=== PATIENT | male | born 1965 | race Caucasian/White ===

== ENCOUNTER → 2016-09-23 | Day surgery (SDC) | payer BC ==
[2016-09-11 08:26] VITALS: Ht 185.4 cm; Wt 112.3 kg
[~2016-09-23] VITALS: Ht 185.4 cm; Wt 112.3 kg
[~2016-09-23] MED LIST: ALBU18002 INH; LABETALOL HCL IV 5 MG/ML 20ML ONE; LIDOCAINE HCL 2% 2 ML VIAL (20MG/ML) ONE; MIDAZOLAM HCL 1 MG/ML 2ML VIAL ONE; NAPR500T3 PO; ONDANSETRON INJ 2 MG/ML 2 ML VIAL ONE; PROPOFOL IV EMULSION 10 MG/ML 20 ML VIAL IV ONE; SODIUM CHLORIDE 0.9% 500ML 500 ML IV ONE
--- NOTE | 2016-09-23 09:57 | Endo History and Physical ---
History & Physical Date of Service: Sep 23, 2016. Chief Complaint: screening Referring Physician: Dr. Josie Kraus History of Present Illness 51 yo CM who presents for screening colonoscopy. Past Surgical History Hx Cardiac Surgery: No Hx Internal Defibrillator: No Hx Pacemaker: No Hx Abdominal Surgery: No Hx of Implantable Prosthesis: No Hx Post-Op Nausea and Vomiting: No Hx Cancer Surgery: No Hx Thoracic Surgery: No Hx Orthopedic: No Hx Urinary Tract Surgery: No Family History Esophogeal CA Social History Smoking Status: Never Smoker Hx Substance Use: No Hx Alcohol Use: Yes (RARELY) Allergies Coded Allergies: Aspirin (Verified Allergy, Unknown, ASTHMA ATTACK, 09/11/16) Penicillins (Verified Allergy, Unknown, ? REMEMBER / A CHILD, 09/11/16) Current Medications Reported Home Medications Medications Dose Route/Sig Max Daily Dose Days Date Category Proair Respiclick (Albuterol Sulfate) 108 Mcg/Act Aer 2 Puffs INH QID PRN 09/11/16 Reported Naproxen 500 Mg Tab 1 Tab PO BID PRN 30 09/11/16 Reported Vital Signs Weight (Kilograms): 112.27 Height (Feet): 6 Height (Inches): 1 Date Time Temp Pulse Resp B/P Pulse Ox O2 Delivery O2 Flow Rate FiO2 09/23/16 09:23 36.7 76 20 145/89 97 Room Air Physical Exam General Appearance: WD/WN, no apparent distress Respiratory/Chest: Auscultation: breath sounds normal Cardiovascular: Heart Auscultation: RRR Abdomen: Bowel Sounds: normal Inspection & Palpation: soft, non-distended, no tenderness, guarding & rebound Assessment and Plan Assessment: 51 yo CM who presents for screening colonoscopy. Plan: Proceed with colonoscopy.
--- NOTE | 2016-09-23 10:29 | Discharge Instructions ---
Endoscopy Patient Instructions Date / Procedure(s) Performed Sep 23, 2016. Colonoscopy Allergy Information Coded Allergies: Aspirin (Verified Allergy, Unknown, ASTHMA ATTACK, 09/11/16) Penicillins (Verified Allergy, Unknown, ? REMEMBER / A CHILD, 09/11/16) Discharge Date / Findings Sep 23, 2016. Colon polyps Diverticulosis Internal hemorrhoids Medication Instructions OK to resume all medications today as prescribed. Reported Home Medications Medications Dose Route/Sig Max Daily Dose Days Date Category Proair Respiclick (Albuterol Sulfate) 108 Mcg/Act Aer 2 Puffs INH QID PRN 09/11/16 Reported Naproxen 500 Mg Tab 1 Tab PO BID PRN 30 09/11/16 Reported Provider Instructions Activity Restrictions - No exercising or heavy lifting for 24 hours. - Do not drink alcohol the day of the procedure. - Do not drive a car or operate machinery until the day after the procedure. - Do not make any important decisions or sign important papers in 24 hours after the procedure. Following Day: - Return to full activity which may include returning to work/school. Diet Start your diet with liquids and light foods (jello, soup, juice, toast). Then eat your usual diet if not nauseated. Treatment For Common After Affects For mild abdominal pain, bloating, or excessive gas: - Rest - Eat lightly - Lie on right side Follow-Up Information Follow-up with Dr. Josie Kraus as scheduled Anesthesia Information What You Should Know You have had a procedure that required some medicine to reduce anxiety and discomfort. This treatment is called moderate sedation. After receiving the treatment, you may be sleepy, but you will be able to breathe on your own. The effects of the treatment may last for several hours. Follow these instructions along with Activity/Diet recommendations noted above: * Do NOT do anything where dizziness or clumsiness would be dangerous. * Rest quietly at home today, then you can be up and about tomorrow. * Have a responsible person stay with you the rest of today. * You may have had an I.V. today. If so, you may take the dressing off later today. Recommendations Call your doctor if: * Trouble breathing * Continuous vomiting for more than 24 hours * Temperature above 101 degrees * Severe abdominal pain or bloating * Pain not relieved by pain medicine ordered * There is increased drainage or redness from any incision * A large amount of rectal bleeding greater than 2-3 tablespoons. (If you had a polyp/s removed or have hemorrhoids, a small amount of blood - from the rectum is to be expected.) * You have any unanswered questions or concerns. IN THE EVENT OF A SERIOUS EMERGENCY, GO TO THE NEAREST EMERGENCY ROOM Your discharge instructions were prepared by provider Khurram Garza. Patient Instructions Signature Page Hugo Carmelo Patient (or Guardian) Signature/Date: I have read and understand the instructions given to me by my caregivers. Caregiver/RN/Doctor Signature/Date: The above-named patient and/or guardian has received patient instructions on this date. + Original Patient Signature Page (only) stays with chart. Please make copy for patient.
--- NOTE | 2016-09-23 10:33 | GI REPORT ---
Procedure Date: 09/23/2016 9:46 AM Procedure: Colonoscopy Indications: Screening for colorectal malignant neoplasm Medicines: Monitored Anesthesia Care Complications: No immediate complications. Estimated Blood Loss: Estimated blood loss: none. Procedure: Pre-Anesthesia Assessment: - Prior to the procedure, a History and Physical was performed, and patient medications and allergies were reviewed. The patient's tolerance of previous anesthesia was also reviewed. The risks and benefits of the procedure and the sedation options and risks were discussed with the patient. All questions were answered, and informed consent was obtained. Prior Anticoagulants: The patient has taken no previous anticoagulant or antiplatelet agents. ASA Grade Assessment: II - A patient with mild systemic disease. After reviewing the risks and benefits, the patient was deemed in satisfactory condition to undergo the procedure. After I obtained informed consent, the scope was passed under direct vision. Throughout the procedure, the patient's blood pressure, pulse, and oxygen saturations were monitored continuously. The scope was introduced through the anus and advanced to the terminal ileum. The colonoscopy was performed without difficulty. The patient tolerated the procedure well. The quality of the bowel preparation was good. The terminal ileum, ileocecal valve, appendiceal orifice, and rectum were photographed. Findings: Two sessile polyps were found at the hepatic flexure. The polyps were 5 to 10 mm in size. These polyps were removed with a hot snare. Resection and retrieval were complete. Multiple small-mouthed diverticula were found in the sigmoid colon. Non-bleeding internal hemorrhoids were found during retroflexion. The hemorrhoids were small. Impression: - Two 5 to 10 mm polyps at the hepatic flexure, removed with a hot snare. Resected and retrieved. - Diverticulosis in the sigmoid colon. - Non-bleeding internal hemorrhoids. Recommendation: - Resume previous diet. - Continue present medications. - Repeat colonoscopy for surveillance based on pathology results. - Return to primary care physician as previously scheduled. Khurram Garza, DO 09/23/2016 10:32:30 AM This report has been signed electronically. Note Initiated On: 09/23/2016 9:46 AM I attest to the content of the Intraoperative Record and orders documented therein, exceptions below
--- NOTE | 2016-09-23 10:57 | Anesthesiology Progress Note ---
Anesthesia Post Op Note Date & Time Sep 23, 2016 at 10:57 Vital Signs Pain Intensity: 0 Vital Signs Past 12 Hours Date Time Temp Pulse Resp B/P Pulse Ox O2 Delivery O2 Flow Rate FiO2 09/23/16 10:52 75 20 146/86 98 Room Air 09/23/16 10:37 80 16 146/75 98 Room Air 09/23/16 09:23 36.7 76 20 145/89 97 Room Air Notes Mental Status: alert / awake / arousable, participated in evaluation Pt Amnestic to Procedure: Yes Nausea / Vomiting: adequately controlled Pain: adequately controlled Airway Patency, RR, SpO2: stable & adequate BP & HR: stable & adequate Hydration State: stable & adequate Anesthetic Complications: no major complications apparent
[2016-09-23 11:07] VITALS: BP 140/84; PULSE 68; O2SAT 96
== END | disposition home or self-care (01) ==
LOC: C.GI 09:08
PROVIDERS: ATTEND Internal Medicine
DX: Z12.11 Encounter for screening for malignant neoplasm of colon (principal); D12.3 Benign neoplasm of transverse colon; K57.30 Diverticulosis of large intestine without perforation or abscess without bleeding; K64.8 Other hemorrhoids; Z80.0 Family history of malignant neoplasm of digestive organs; Z88.0 Allergy status to penicillin; Z88.8 Allergy status to other drugs, medicaments and biological substances

== ENCOUNTER → 2016-11-30 | Outpatient (CLI) | payer BC ==
[~2016-11-30] MED LIST changes: -LABETALOL HCL IV 5 MG/ML 20ML ONE; -LIDOCAINE HCL 2% 2 ML VIAL (20MG/ML) ONE; -MIDAZOLAM HCL 1 MG/ML 2ML VIAL ONE; -ONDANSETRON INJ 2 MG/ML 2 ML VIAL ONE; -PROPOFOL IV EMULSION 10 MG/ML 20 ML VIAL IV ONE; -SODIUM CHLORIDE 0.9% 500ML 500 ML IV ONE
--- NOTE | 2016-12-01 05:53 | SPLIT NIGHT TECHNICIAN REPORT ---
[facility] Split Night Polysomnogram - Aircraft Maintenance Supervisor Report Study date: 11/30/2016 Referring Physician: DR. MARIN Name: JOHNNY RHODES Aircraft Maintenance Supervisor: JEEVAN Rodriguez. Date of : 1965 Height: 51 years, Height 6' 1" Sex: Male Weight: 251 lbs Age: 51 Neck Circum: 18.5 in BMI: Medications: 33.11 LORATADINE 10 MG, ALBUTEROL SULFATE Patient History 51 yr-old male here for a baseline/split study. He has a history of snoring, witnessed apneas, and dog hair allergies. He has had previous sleep testing and was found to be positive for TRSESA but did not use CPAP at that time. His Leslie scale is 2. The test was started on room air. ETCO2 testing was not utilized during this study. Room 1 Parameters Monitored NPSG: E1-M2, E2-M1, Fp1-M2, Fp2-M1, F3-M2, F4-M2, F4-M1, C3-M2, C4-M2, C4-M1, O1-M2, O2-M2, O2-M1, T3-M2, T4-M1, P3-M2, P4-M1, CHIN1, CHIN2, HR, EKG, Legs, PFLOW, SNOR, FLOW, CFLOW, Tidal Volume, THOR, ABDO, SpO2, PLTH, CPRESS, ETCO2 Wave, ETCO2, pH SLEEP SUMMARY DATA DIAGNOSTIC TREATMENT Lights Out: 9:27:41 PM 12:12:11 AM Lights On: 12:01:41 AM 5:29:41 AM Total Recording Time (TRT): 154.0 min. 317.5 min. Total Sleep Time (TST): 127.5 min. 294.5 min. NREM Time: 116.0 min. 235.5 min. REM Time: 11.5 min. 59.0 min. Sleep Period Time (SPT): 131.5 min. 308.0 min. Sleep Efficiency (SE): 83 % 93 % Sleep Latency: 22.5 min. 9.5 min. Arousal Index: 38.1 21.0 PAP Treatment Levels: 4, 6, 8, 10, 11, 12 * Optimal Pressure(s) SLEEP STAGING DATA DIAGNOSTIC TREATMENT Duration (min) TST % Duration (min) TST % Stage Wake: 26.5 min. -- 23.0 min. -- WASO: 4.0 min. -- 13.5 min. -- NREM: 116.0 min. 91 % 235.5 min. 80 % Stage N1: 16.0 min. 13 % 31.0 min. 11 % Stage N2: 100.0 min. 78 % 158.0 min. 54 % Stage N3: 0.0 min. 0 % 46.5 min. 16 % REM: 11.5 min. 9 % 59.0 min. 20 % POSITIONAL DATA Event Count Index Event Count Index Supine: N/A N/A N/A N/A Supine NREM: N/A N/A N/A N/A Supine REM: N/A N/A N/A N/A Non-Supine: 169 79.5 111 22.0 Non-Supine NREM: 158 81.7 107 26.8 Non-Supine REM: 11 57.4 4 3.1 AROUSAL SUMMARY DATA: Event Count Index Event Count Index Apnea Arousals: 45 52.2 44 17.9 Hypopnea Arousals: 22 10.4 9 1.8 Snore Arousals: 3 1.4 16 3.3 PLM Arousals: 0 0.0 0 0.0 Non-Specific Arousals: 13 6.1 32 6.5 Total Arousals: 81 38.1 103 21.0 MYOCLONUS (PLM) Event Count Index Event Count Index PLM: 1 0.5 73 14.9 PLM AROUSAL: 0 0.0 0 0.0 PLM W/O AROUSAL 1 0.5 73 14.9 PLM W/RESP EVENT 0 0.0 2 0.0 MYOCLONUS (PLM) Event Count Index Event Count Index LM: 1 8.5 30 6.1 LM AROUSAL: 1 0.5 1 0.2 LM W/O AROUSAL LM W/RESP EVENT LM NON SPECIFIC 8 3.8 98 20.0 HEART RATE DATA DIAGNOSTIC TREATMENT Sleep (bpm): 68 67 REM (bpm): 80 94 NREM (bpm): 88 94 Tachycardia Count: 0 0 Tachycardia Duration: 0.00 0 Bradycardia Count: 0 0 Bradycardia Duration: 0.00 0 DIAGNOSTIC PORTION TREATMENT PORTION RESPIRATORY DATA Event Count Index Event Count Index AHI: -- 79.5 -- 22.0 RDI: -- 79.5 -- 23 Obstructive Apnea: 110 51.8 80 16.3 Central Apnea: 0 0.0 8 1.6 Mixed Apnea: 1 0.5 0 0.0 Hypopnea: 58 27.3 20 4.1 RERA: 0 0.0 3 0.6 Total Apneas: 111 52.2 88 17.9 RESPIRATORY DATA REM NREM SLEEP REM NREM SLEEP Supine Position: Obstructive Apneas: N/A N/A N/A N/A N/A N/A Central Apneas: N/A N/A N/A N/A N/A N/A Mixed Apneas: N/A N/A N/A N/A N/A N/A Hypopneas: N/A N/A N/A N/A N/A N/A RERA N/A N/A N/A N/A N/A N/A Total Supine Events: N/A N/A N/A N/A N/A N/A Supine AHI: N/A N/A N/A N/A N/A N/A Supine RDI: N/A N/A N/A N/A N/A N/A REM NREM SLEEP REM NREM SLEEP Non-Supine Position: Obstructive Apneas: 3 107 110 1 79 80 Central Apneas: 0 0 0 2 6 8 Mixed Apneas: 1 0 1 0 0 0 Hypopneas: 7 51 58 0 20 20 RERA 0 0 0 1 2 3 Total Supine Events: 11 158 169 4 107 111 Supine AHI: 57.4 81.7 79.5 3.1 26.8 22.0 Supine RDI: 57.4 81.7 79.5 4.1 27.3 22.6 OXYGEN DESTAURATION DATA: Event Count Index Event Count Index REM Desaturations: 12 62.6 3 3.1 NREM Desaturations: 140 72.4 76 19.4 SNORE DATA DIAGNOSTIC TREATMENT Snore Time: 15.0 12:21:41 AM Snore TST%: 4 5 Snore Arousal Count: 3 16 Snore Arousal Index: 1.4 3.3 Desaturation Event Summary: Minimum %SpO2 Event Count Mean/Min/Max Duration(sec.) Desaturation Index % Time In Bed > 90 231 27.3 / 9.3 / 60.0 35.6 82.8 86 - 90 6 26.0 / 13.3 / 46.8 9.8 7.8 81 - 85 0 N/A 0.0 4.5 76 - 80 0 N/A 0.0 2.2 71 - 75 0 N/A 0.0 1.3 66 - 70 0 N/A 0.0 1.1 61 - 65 0 N/A 0.0 0.3 56 - 60 0 N/A 0.0 0.0 51 - 55 0 N/A 0.0 0.0 < 50 0 N/A 0.0 0.0 OXYGEN SATURATION DATA DIAGNOSTIC TREATMENT SpO2 Mean Sleep: 88 % 94 % SpO2 Mean REM: 80 % 94 % SpO2 Mean NREM: 88 % 94 % SpO2 Minimum Sleep: 63 % 82 % SpO2 Minimum REM: 63 % 86 % SpO2 Minimum NREM: 64 % 82 % Time Below 90% (TST): 60.3 8.2 Time Below 88% (TST): 50.5 3.7 Total REM NREM Awake <50% 0.0 min. 0.0 min. 0.0 min. 0.0 min. 51 - 60% 0.0 min. 0.0 min. 0.0 min. 0.0 min. 61 - 70% 6.6 min. 2.6 min. 2.9 min. 1.1 min. 71 - 80% 16.6 min. 3.2 min. 13.1 min. 0.3 min. 81 - 90% 57.8 min. 3.3 min. 54.2 min. 0.3 min. 91 - 100% 389.1 min. 61.4 min. 281.0 min. 46.7 min. Average 92 92 92 93 Minimum SpO2 63 63 64 63 Desaturation Event Index 29.5 12.8 36.9 1.2 # Desat. Events below 89% 152 13 139 0 Time(%) with Saturation below 89% 13.2 1.7 11.2 0.3 Time(min.) with Saturation below 89% 62.2 8.2 52.4 1.6 Recording Aircraft Maintenance Supervisor Comments: Mr. Rhodes slept only in the supine position. No cardiac arrhythmias were noted. Some PLMs were noted. No bruxism noted. Snoring was noted and scored as a 2-3 on a scale of 1 through 5. (0=no snoring, 5=snoring loud enough to be heard through a closed door or down the [place]ataya way) At 12:11 am, he met specific Split-Night criteria during the diagnostic portion of this study. CPAP was initiated at +4 CMH2O and up-titrated to a level of +12 CMH2O, Cflex 3. A Mirage FX Soft edge nasal mask size standard from [employer] was used during titration He awoke to use the restroom one time during the night. Mr. Rhodes stated that he is unsure of how he slept. The final report will be interpreted and signed by a sleep physician. The completed physician report will then be placed in the patient medical record. Therapy Event: Therapy (cm H20) 0 4 6 8 10 11 12 Total Time at Pressure (min.) 154.0 26.3 14.6 50.8 89.0 106.1 30.8 TST at Pressure (min.) 127.5 14.8 14.6 48.8 89.0 101.6 25.8 # Periods 1 1 1 1 1 1 1 Sleep Onset (min.) 22.5 9.5 0.0 0.0 0.0 0.0 0.0 REM Onset (min.) 106.5 N/A N/A 23.1 70.8 52.8 0.0 Sleep Efficiency % 82 56 100 96 100 95 83 Wakefulness (%) 17.2 43.7 0.0 3.9 0.0 4.2 16.3 Wakefulness (min.) 26.5 11.5 0.0 2.0 0.0 4.5 5.0 NREM 1 (%) 10.4 17.1 17.2 7.2 6.6 6.1 26.0 NREM 1 (min.) 16.0 4.5 2.5 3.7 5.8 6.5 8.0 NREM 2 (%) 64.9 39.2 82.8 34.7 36.7 65.8 50.4 NREM 2 (min.) 100.0 10.3 12.1 17.6 32.7 69.8 15.5 NREM 3 (%) 0.0 0.0 0.0 6.9 43.3 4.2 0.0 NREM 3 (min.) 0.0 0.0 0.0 3.5 38.5 4.5 0.0 REM (%) 7.5 0.0 0.0 47.3 13.5 19.6 7.3 REM (min.) 11.5 0.0 0.0 24.0 12.0 20.7 2.3 # Arousals 81 17 14 21 13 28 10 Arousal Index 38.1 68.9 57.7 25.8 8.8 16.5 23.3 # Snore 307 37 45 69 73 172 73 Snore Index 144.5 149.9 185.5 84.9 49.2 101.6 170.1 AHI 79.5 109.4 111.3 28.3 6.1 12.4 2.3 AHI Supine N/A N/A N/A N/A N/A N/A N/A AHI Non-Supine 79.5 109.4 111.3 28.3 6.1 12.4 2.3 NREM AHI 81.7 109.4 111.3 53.3 7.0 14.1 2.6 REM AHI 57.4 N/A N/A 2.5 0.0 5.8 0.0 RDI 79.5 109.4 111.3 28.3 6.1 14.2 2.3 # Obstructive 110 27 26 14 5 7 1 # Central Ap 0 0 0 1 2 5 0 # Mixed 1 0 0 0 0 0 0 # Hypopneas 58 0 1 8 2 9 0 RERAS 0 0 0 0 0 3 0 Total Respiratory Events 169 27 27 23 9 24 1 Time Below SpO2 89.00% (min.) 55.2 0.1 1.8 2.8 0.4 0.5 0.0 Mean NREM SpO2 (%) 88 93 93 93 94 94 94 Mean REM SpO2 (%) 80 N/A N/A 93 95 94 94 Mean Sleep SpO2 (%) 88 93 93 93 94 94 94 Min NREM SpO2 (%) 64 88 84 82 85 86 92 Min REM SpO2 (%) 63 N/A N/A 86 93 91 92 Position Supine (min.) 0.0 0.0 0.0 0.0 0.0 0.0 0.0 Position Non-supine (min.) 127.5 14.8 14.6 48.7 89.0 101.6 25.8 LM Index Sleep 8.9 0.0 8.2 22.1 47.9 6.5 2.3 LM Index NREM 9.3 0.0 8.2 21.8 55.3 7.4 0.0 LM Index REM 5.2 N/A N/A 22.5 0.0 2.9 26.6 Mean Heart Rate (bpm) 68 69 68 70 68 65 62 Min Heart Rate (bpm) 54 65 64 58 61 50 52
--- NOTE | 2016-12-02 14:38 | POLYSOMNOGRAPH REPORT ---
CLINICAL DATA: A 51-year-old male with BMI of [address] Whitney with a history of snoring, witnessed apnea and allergies to dogs. He previously was found to have sleep apnea but did not use CPAP. This was a split night study. SLEEP ARCHITECTURE: For the diagnostic portion of the study, total sleep period was 131.5 minutes. Total sleep time was 127.5 minutes divided between 116 minutes of non-REM sleep and 11.5 minutes of REM sleep. Sleep latency was 22.5 minutes. Sleep efficiency was 83%. Arousal index was 38.1. Sleep consisted of stage N1 13%, N2 78%, REM 9%. For the treatment portion of the study, total sleep period was 308 minutes. Total sleep time was 294.5 minutes divided between 235.5 minutes of non-REM sleep and 59 minutes of REM sleep. Sleep latency was 9.5 minutes. Arousal score was 21. Sleep consisted of stage N1 11%, N2 54%, N3 16%, REM 20%. AROUSAL DATA: Prior to treatment, 81 arousals were recorded for an index of 38.1 per hour. During treatment, 103 arousals were recorded for an index of 21 per hour. PLM DATA: Prior to treatment, 11 limb movements were recorded for an index of 3.8 per hour. During treatment, 103 limb movements were recorded for an index of 28 per hour. HEART RATE DATA: Heart rates ranged from 67 to 94 beats per minute. No arrhythmias were noted. RESPIRATORY DATA: Prior to treatment, very severe sleep apnea was documented. The AHI was 79.5. There were 110 obstructive and 1 mixed apneic episode. There were 50 hypopneic episodes. The average AHI during treatment was 22. There were 80 obstructive and 8 central apneic episodes and 20 hypopneic episodes. OXIMETRY DATA: Severe nocturnal hypoxemia was seen prior to treatment. Oxygen yaw was 63% during REM. The mean saturation with treatment was 94%. CREATIVE WRITING TEACHER'S COMMENTS AND TREATMENT SUMMARY: The patient slept supine. Snoring was moderate, rated 2-3 on a scale of 1 through 5. At 12:11 a.m., he met split night criteria. He used a Mirage FX soft edge nasal mask size standard from [employer]. He was titrated with CPAP up to his final setting of 12 cm of water pressure, C-Flex setting #3. At his final pressure setting, he slept for 25.8 minutes with an AHI of 2.3 and resolution of his nocturnal hypoxemia. IMPRESSION: Very severe sleep apnea/hypopnea with diagnostic AHI at 79.5 with severe nocturnal hypoxemia corrected with CPAP at 12 cm water pressure, C-flex 3 Mirage FX soft edge nasal mask size standard from [employer]. RECOMMENDATIONS: The patient should be started on the above noted treatment regimen and seen back in followup within 90 days to document efficacy and compliance. MTDD
--- NOTE | 2016-12-05 08:42 | OPERATIVE REPORT ---
DATE OF OPERATION: 12/05/2016 PREOPERATIVE DIAGNOSIS: Osteoarthritis, left hip. POSTOPERATIVE DIAGNOSIS: Osteoarthritis, left hip. PROCEDURE: Left connective total hip arthroplasty. SURGEON: Dr. Sandoval. GLASS INSTALLER TECHNICIAN: Hector Lopez PA-C. ANESTHESIA: Spinal. COMPLICATIONS: None. DESCRIPTION OF PROCEDURE: Following induction of adequate spinal anesthesia, the patient was placed in right lateral decubitus position and left Ghanshyam-Langenbeck incision was made. Subcutaneous tissue was sharply dissected. Electrocautery used for hemostasis. The fascia was incised throughout the length of the wound and a bello scissor placed beneath the short external rotators. The pyriformis was tagged with #1 Vicryl. The short external rotators were divided from the posterior aspect of the femur using electrocautery. These were swept posteriorly. A T-capsulotomy incision was made and the hip was dislocated using a combination of flexion, adduction, and internal rotation. Exposure of the femoral neck with old-style Hohmann and a blunt Hohmann was carried out and a femoral rasp was utilized as a guide for making the appropriate level femoral neck cut. This bone fragment was removed and reserved on the back table. Next, attention was turned to the acetabulum where bone hook was used to retract the femur while the offset retractors were placed anterior and posteriorly. A double-angled Hohmann was placed in superior and anterior position exposing the acetabulum nicely. Acetabular labrum as well as posterior capsule elements were removed using a long knife and a long pickup. Fovea centralis was cleared of all soft tissue. Sequential reamings were carried up to a 56 and decision was made to proceed with impaction of a 56 trabecular metal cup. This was impacted and held using a single 35 mm bone screw. The acetabular liner was placed with 15 of elevated posterior wall in the superior and posterior position. Next, attention was turned to the femoral portion of the case where a Bovie and pickup was used to further clear short external rotators from their insertion on the femur. Box osteotome was used to gain access to the femoral canal and the T-handled rasp and a rattail rasp were used to further open and lateral the canal. Sequentially raspings were carried up to a 5 which gave good fit and fill of the proximal femur. A trial reduction was carried out and extended offset femoral neck component was chosen as the size to be used. A +2.5 x 36 mm ceramic femoral head was impacted into position, +0 head was utilized. The trial reduction was stable in all degrees of rotation with no [id number] impingement. The hip was dislocated. The trial components were removed and the final femoral stem, neck, and femoral head combination were assembled on the back table and impacted into position. Hip was relocated. Range of motion checked once again successful and the wound was irrigated. The pyriformis repaired to the greater trochanter using #1 Vicryl [id number] suture. A Hemovac drain was placed and the fascia was closed using #1 Vicryl, subcutaneous tissue was closed using 0 Dexon, and skin was closed with joni. Sterile dressing of Adaptic, 4 x 4's, ABDs, and foam tape was applied. The patient tolerated the procedure well. Due to the complex nature of the procedure, the entire surgery was performed with the operational assistance of Hector Lopez PA-C. The assistant professor of drama, under direct supervision, was involved in the actual performance of all aspects of the surgical procedure including hemostasis, tissue retraction and incision, instrument management, patient positioning, and wound closure. I attest to the content of the Intraoperative Record and any orders documented therein. Any exceptio ns are noted below.
== END | disposition home or self-care (01) ==
LOC: C.NEUR 20:00
PROVIDERS: ATTEND Internal Medicine Pulmonary Disease
DX: G47.30 Sleep apnea, unspecified (principal); R09.02 Hypoxemia